=== PATIENT | female | born 1970 | race Two or more races ===

== ENCOUNTER 2017-08-19 15:47 | Outpatient (AMBR) | payer MEDICAID, SELFPAY ==
--- NOTE | 2017-08-19 16:15 | PTNOTE_ITS ---
PT OP Initial Eval Patient Information Visit Reasons: right side sciatica Medical Diagnosis: M54.3 Treatment Dx #1: back pain Treatment Dx #2: R LE pain Start of Care: 08/19/17 Date of Onset: 1 yr ago Initial Assessment Subjective Pt is 47 yr old female who c/o LBP that radiates down the R LE to the calf x1 yr. Pain level today is 2/10 that increases with prolonged walking, bending and lifting. 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 When she sleeps on the R side the R LE goes numb and interrupts sleep. About 7 months ago the R ankle started hurting and feeling weak. She denies loss of B&B control. PMH: DM, HTN, TB when she was a child, diabetic retinopathy, uterine ablation in May Imaging: X-ray of L/S 4 yrs ago Pt goal: for the pain and numbness to go away Objective Trunk ArOM: B SB 20 with pain L>R Extension: 20% with pain around L5-S1 on R side Flexion: 9 from floor with increased LBP and posterior thigh pain B rotation: full R SLR ROM: 55 deg with posterior knee neural tension and LBP. L SLR: 70 deg LE strength: B hamstrings: 4/5 R Quads 3+/5 limited by LBP R ankle DF: 4-/5 Hip abd/add 4/5 SLR: positive on R TTP: moderate R paraspinals L5-S1, PSIS L<R, glute max,piriformis lumbar paraspinal atrophy R SLR: positive Sensation: intact to light touch Assessment Pt presents with trunk ROM limitations and LBP with radiation to the R LE consistent with lumbar disc irritation/bulge and LE radiculopathy. Pt has trunk flexion sensitivity that limits squatting and bending tolerance. Pt has neural tension along sciatic pathway and positive R SLR testing. Pt was taught HEP and given materials. PT recommends further diagnostic imaging of L/S. Short Term and Mechanical Integrity Specialist Goals 1. Ind with HEP 2. Decreased R LE radicular ssx by 50% 3. Pt will demonstrate squat and golfers lift while maintaining proper lumbar lordosis. 4. Decreased muscle spasm and TTP of lumbar paraspinals from mod to min Treatment Plan 1. Manual therapy 2. Therex 3. Modalities as indicated, moist heat pack, ice, electrical stimulation, Frequency and Duration 2x a week for 6 weeks Certification Dates: 08/19/17 to 11/19/17 Office Procedures PT Procedures PT Date of Service: 08/19/17 OP PT Eval Mod Complex 30 minutes: Yes
== END 2017-09-02 23:59 ==
PROVIDERS: PCP Family Medicine; Referring Provider Family Medicine; Visit Provider Family Medicine
DX: M54.41 Lumbago with sciatica, right side (principal)
CPT/HCPCS: 97162

== ENCOUNTER → 2024-03-07 | Outpatient (CLI) | payer MEDICAID, SELFPAY ==
--- NOTE | 2024-03-07 15:40 | XR_ITS ---
Examination: Lumbar spine, 5 views Technique: Lumbar spine AP, lateral, coned lateral lower lumbar spine, bilateral obliques 5 views Exam date and time: March 07, 2024 1543 hours INDICATIONS: Low back pain beginning 8 months ago. FINDINGS: Moderate osteopenia Lumbar levoscoliosis 8 degrees Moderate to advanced diffuse facet arthropathy No lumbar fracture Moderate lumbar spondylosis Moderate disc narrowing L1-L2, L2-L3 Mild disc narrowing L3-L4, L5-S1 No spondylolisthesis IMPRESSION: Lumbar degenerative disc disease as above, most prominent L1-L2, L2-L3
--- NOTE | 2024-03-07 15:40 | XR_ITS ---
Examination: Foot, left, 3 views Technique: AP, oblique, lateral views foot, 3 views Date and time of exam: March 07, 2024 1543 hours INDICATIONS: Left foot pain beginning 7 months ago FINDINGS: Mild to moderate bunion deformity Mild to moderate osteoarthritis first metatarsophalangeal joint No fracture or dislocation Ossification Achilles insertion 4 mm plantar bony calcaneal spur IMPRESSION: Mild to moderate bunion deformity Mild to moderate osteoarthritis first metatarsophalangeal joint 4 mm plantar bony calcaneal spur
== END | disposition home or self-care (01) ==
PROVIDERS: PCP Nurse Practitioner Primary Care; Referring Provider Podiatrist; Visit Provider Podiatrist
DX: M51.369 Other intervertebral disc degeneration, lumbar region without mention of lumbar back pain or lower extremity pain (principal); M21.612 Bunion of left foot; M19.072 Primary osteoarthritis, left ankle and foot; M77.32 Calcaneal spur, left foot
CPT/HCPCS: 72110; 73630

== ENCOUNTER → 2024-09-19 | Outpatient (CLI) | payer MEDICAID, SELFPAY ==
--- NOTE | 2024-09-19 10:15 | XR_ITS ---
Examination: Screening digital mammography, bilateral Computer aided detection 3-D breast Tomosynthesis, bilateral Date and time of exam: September 19, 2024 1005 hours Compared to mammograms dating to November 13, 2011 Indication: Screening Technique: Nonmagnified MLO, CC views of the breasts to been obtained, reconstructed from 3-D Tomosynthesis images. R2 computer aided detection program utilized for evaluation of suspicious masses and/or abnormal calcifications. 3-D Tomosynthesis images obtained. Findings: Scattered areas of fibroglandular density. Benign calcifications. No interval suspicious masses Impression: BI-RADS category II: Benign Findings. Recommend 1 year follow-up mammogram.
== END | disposition home or self-care (01) ==
LOC: CDIM 09:43
PROVIDERS: Referring Provider Nurse Practitioner Primary Care; Visit Provider Nurse Practitioner Primary Care
DX: Z12.31 Encounter for screening mammogram for malignant neoplasm of breast (principal); R92.323 Mammographic fibroglandular density, bilateral breasts; R92.1 Mammographic calcification found on diagnostic imaging of breast
CPT/HCPCS: 77063; 77067

== ENCOUNTER → 2024-11-01 | Outpatient (CLI) | payer MEDICAID, SELFPAY ==
--- NOTE | 2024-11-01 15:34 | XR_ITS ---
Examination: Bilateral wrists 6 views TECHNIQUE: AP lateral oblique each wrist total 6 views Date and time: November 01, 2024 1541 hours INDICATIONS: Wrist pain months. FINDINGS: Moderate osteopenia. No fracture or dislocation involving either wrist Surgical clips along the distal left radius No erosive or other significant arthritic change IMPRESSION: No erosive or other significant arthritic change involving either wrist
--- NOTE | 2024-11-01 15:34 | XR_ITS ---
Examination: Bilateral hands, 6 views. Technique: AP, Oblique, Lateral each hand total 6 views Date and time of exam: November 01, 2024 1535 hours INDICATIONS: Hand pain and swelling months FINDINGS: Moderate juxta-articular bone demineralization. No fracture or dislocation involving either hand. No erosive or other significant arthritic change involving either hand. Surgical clips adjacent to the distal left radius IMPRESSION: No fractures No erosive or other significant arthritic change
== END | disposition home or self-care (01) ==
PROVIDERS: PCP Nurse Practitioner Primary Care; Referring Provider Nurse Practitioner Gerontology; Visit Provider Nurse Practitioner Gerontology
DX: M79.641 Pain in right hand (principal); M79.642 Pain in left hand; M25.531 Pain in right wrist; M25.532 Pain in left wrist
CPT/HCPCS: 73110; 73130